=== PATIENT | male | born 1955 | race Caucasian/White ===

== ENCOUNTER 2016-11-08 00:30 | Emergency (ER) | payer OTHER ==
[~2016-11-08] VITALS: Ht 170.2 cm; Wt 72.0 kg
[2016-11-08 00:37] VITALS: BP 126/79; PULSE 107; RESP 18; TEMP 98.4; O2SAT 97
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
[2016-11-08] MEDS ORDERED: PAXI20TA PO (00:43)
[2016-11-08] MEDS ORDERED: PROC90TA PO (00:43)
[2016-11-08] MEDS ORDERED: KLON2TAB PO (00:44)
[2016-11-08 01:00] VITALS: RESP 18; O2SAT 97
[2016-11-08] MEDS ORDERED: THIAMINE HCL 200 MG/2 ML VIAL IM ONE (01:00)
[2016-11-08] MEDS ORDERED: TETANUS/DIPHTHERIA TOXOID ADULT 0.5 ML VIAL IM ONE (01:00)
[2016-11-08] MEDS ORDERED: SODIUM CHLOR 0.9% 1000 ML INJ 1,000 ML IV ONE ×2 (01:00→03:15)
[2016-11-08 01:49] LABS: AUTOMATED NEUTROPHIL # 15.3 TH/MM3 (1.8-7.7); BASOPHIL # 0.1 TH/MM3 (0-0.2); BASOPHIL % 0.5 % (0.0-2.0); EOSINOPHIL # 0.2 TH/MM3 (0-0.4); EOSINOPHIL % 1.1 % (0.0-4.0); HEMATOCRIT 42.7 % (39.0-51.0); MEAN CELL VOLUME 88.7 FL (80.0-100.0); MEAN CORPUSCULAR HEMOGLOBIN 28.7 PG (27.0-34.0); MEAN CORPUSCULAR HGB CONC 32.4 % (32.0-36.0); NEUT % 87.4 % (16.0-70.0); PLATELET COUNT 173 TH/MM3 (150-450); RED BLOOD COUNT 4.81 MIL/MM3 (4.50-5.90); WHITE BLOOD COUNT 17.5 TH/MM3 (4.0-11.0)
[2016-11-08 02:03] LABS: APTT (PATIENT) 22.7 SEC (24.3-30.1); INTERNATIONAL NORMALIZED RATIO 0.9 RATIO; PROTHROMBIN TIME - PATIENT 10.2 SEC (9.8-11.6)
[2016-11-08 02:16] LABS: HEMO FLAGS AUTO DIFF
[2016-11-08 02:19] LABS: PLATELET ESTIMATE SMEAR NORMAL (NORMAL); PLATELET MORPHOLOGY NORMAL (NORMAL); SCAN/DIFF AUTO DIFF CONFIRMED
[2016-11-08 02:30] LABS: BICARBONATE 22.7 MEQ/L (21.0-32.0); POTASSIUM 3.9 MEQ/L (3.5-5.1)
[2016-11-08] MEDS ORDERED: IOHEXOL 350 MG/ML 10 ML VIAL (for RAD DIAG) IV ONE (03:36)
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
== END 2016-11-08 07:10 | disposition home or self-care (01) ==
LOC: NEPC 00:30
DX: S02.40CA Maxillary fracture, right side, initial encounter for closed fracture (principal); S02.81XA Fracture of other specified skull and facial bones, right side, initial encounter for closed fracture; S02.40EA Zygomatic fracture, right side, initial encounter for closed fracture; S02.2XXA Fracture of nasal bones, initial encounter for closed fracture; F10.229 Alcohol dependence with intoxication, unspecified; E86.0 Dehydration; E87.0 Hyperosmolality and hypernatremia; R00.0 Tachycardia, unspecified; Y04.2XXA Assault by strike against or bumped into by another person, initial encounter; Z23 Encounter for immunization; Z72.0 Tobacco use
CPT/HCPCS: 70450; 70486; 71260; 72125; 74177; 80048; 80307; 85025; 85610; 85730; 86850; 86900; 86901; 90471; 90714; 96361; 96372; 96374; 99284; J3411; J7030; Q9967